=== PATIENT | female | born 1965 | race Caucasian/White ===

== ENCOUNTER → 2022-06-25 09:10 | Outpatient (BNVA) | payer BC, SELFPAY | PROVIDERS: PCP Nurse Practitioner Family; Visit Provider Student in an Organized Health Care Education/Training Program | DX: L93.0 Discoid lupus erythematosus (principal) ==

== ENCOUNTER → 2022-08-07 13:47 | Outpatient (BNVA) | payer BC, SELFPAY | PROVIDERS: PCP Nurse Practitioner Family; Visit Provider Student in an Organized Health Care Education/Training Program | DX: Z13.89 Encounter for screening for other disorder (principal) ==

== ENCOUNTER → 2022-12-04 13:02 | Outpatient (BNVA) | payer OTHER, SELFPAY | PROVIDERS: PCP Nurse Practitioner Family; Visit Provider Student in an Organized Health Care Education/Training Program ==

== ENCOUNTER 2023-09-20 14:06 | Outpatient (AMB) | payer OTHER, SELFPAY ==
--- NOTE | 2023-09-20 14:11 | MHC.OFFVIS ---
Intake Vital Signs 09/20/23 14:13 Height 5 ft 3.5 in Weight 121 lb 4.068 oz BMI 21.1 BP 128/66 Blood Pressure Location Rt brachial Position Sitting Pulse 58 Pulse Source Pulse Oximeter Pulse Oximetry (%) 98 Oxygen Delivery Method Room Air Intake Visit Reasons: Discoid Lupus Intake Note: Patient last seen 12/04/22 presents today for follow up. Spa Technician Required: No Accompanied by: Self / Same As Patient Allergies acetaminophen [From Percocet] Adverse Reaction (Intermediate, Verified 09/20/23 14:17) Hives oxycodone [From Percocet] Adverse Reaction (Intermediate, Verified 09/20/23 14:17) Hives Medication List - Last Reconciled 09/20/23 by Andrea Bardales MD amlodipine 10 mg PO DAILY clobetasol 0.05% 1 appl topical DAILY diclofenac sodium 1% 2 grams topical QID gabapentin 300 mg PO TID hydrochlorothiazide 25 mg PO DAILY hydroxychloroquine (Plaquenil) 200mg daily, on weekends 200mg bid orally 2 times a day; levocetirizine (Xyzal) 5 mg PO DAILY metoprolol succinate ER 50 mg PO DAILY HPI HPI Comments History of Present Illness Details 57-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 Doing well overall. She states that back in May she held her 2nd Plaquenil dose that she takes on the weekends. On advised from her accountant bookkeeper as a trial. She said soon after she started having diffuse itchy rashes on her face scalp and swelling of her right knee and foot., immediately she went back to taking the 2nd dose of hydroxychloroquine on weekends. She also had an episode of right knee swelling. She was evaluated by Orthopedics and received a Medrol pack with resolution. She states that she gets intermittent itching of her scalp. Currently she is having an lesion on her crown and mild generalized itching in the back of her scalp. She uses a clobetasol foam mixed with minoxidil. She has not had any other symptoms. Initial history: This is a 56-year-old female with a past medical history of discoid lupus who presents for evaluation. The condition started in the s when patient was under a lot of stress due to her mother's illness. She developed an itchy skin rash on her back. He was biopsied and the biopsy showed discoid lupus. Patient was on topical steroid creams and eventually the rashes resolved in 1-2 years. Four years ago, a few weeks after her 1st cervical spine surgery she had itchy skin rashes on her scalp, face and extremities. This was associated with hair loss. She was evaluated by a accountant bookkeeper and was initially diagnosed with psoriasis and was started on topical steroid treatment without relief she was then re-evaluated by another accountant bookkeeper Dr. Campbell and was diagnosed with discoid lupus. She had been on hydroxychloroquine 400 mg day for a few years then this dose was changed to 200 mg daily 5 days a week and 400 mg on the weekends. Her discoid lupus is better controlled now overall. Patient has been having fatigue and pain in her hands over the last 1-2 years. She was evaluated by a correctional sergeant and was deemed not to have systemic lupus only osteoarthritis. She is here for 2nd opinion. She continues to have pain in her left hand 2nd MCP, right hand 3rd MCP and bilateral thumbs. She has ongoing fatigue. Patient sleeps well but does not wake up refreshed. She denies any blood or frothy in the urine. No history of DVT/PE. No history suggestive of Raynaud's. [facility] Medical History (Updated 09/20/23 @ 14:35 by Andrea Bardales MD) Lumbar herniated disc Hypertension GERD (gastroesophageal reflux disease) Cutaneous lupus erythematosus Discoid lupus Arthritis Surgical History H/O spinal fusion delivery delivered History of knee replacement procedure of right knee History of knee replacement procedure of left knee H/O neck surgery Family History Father Colon cancer Mother Hyperlipemia COPD (chronic obstructive pulmonary disease) Myocardial infarct Rheumatoid arthritis Sister Rheumatoid arthritis Lung cancer Social History Household Members: Spouse Household Members Other:: Son Alcohol intake: current Alcohol intake frequency: a few times a week Current occupational status: employed Current occupation: blood donor unit assistant Review of Systems Musc Denies joint swelling Skin/Breast Reports pruritus and Reports rash Physical Exam Vital Signs: Last Vital Signs Pulse 58 09/20/23 14:13 BP 128/66 09/20/23 14:13 Pulse Ox 98 03/18/24 14:13 Oxygen Delivery Method Room Air 09/20/23 14:13 BMI result Body Mass Index 21.1 Const General: cooperative, healthy appearing, comfortable, no acute distress and well developed Nutritional Appearance: thin Orientation/consciousness: patient oriented x3 Limitations: no limitations HEENT Mouth: moist mucous membranes Resp Effort & Inspection: normal respiratory effort and able to speak in complete sentences Cardio Rate: regular rate Rhythm: regular rhythm Heart sounds: S1 normal heart sound present and S2 normal heart sound present GI Inspection: No distended Palpation (GI): Soft to palpation and nontender Skin Other: Small circular scaly raised lesion on her crown Neuro General: patient oriented x3 Extrem Other: Significant osteoarthritic changes of both hands with prominent Heberden's and Toshia's nodes No swollen or tender joints today Mild left 1st CMC tenderness Normal nailfold capillaroscopy Assessment & Plan Assessment & Plan (1) Discoid lupus: Code(s): L93.0 - Discoid lupus erythematosus Plan: This is a 56-year-old female with discoid lupus initially diagnosed in the s through skin biopsy of a lesion on her back, treated with topical steroid creams with resolution. Relapse in 2018 after cervical spine surgery with discoid lesions on scalp and extremities associated with hair loss now much better controlled on hydroxychloroquine. Labs show a persistently positive SSB and intermittently positive rheumatoid factor. Clinical picture rather consistent with UCTD. Continue hydroxychloroquine 200 mg 5 days a week and 400 mg 2 days a week. Briefly patient skipped her 2nd dose of hydroxychloroquine on the weekends and she developed a flare with itchy skin lesions and swollen joints that were controlled with prednisone. Labs before next visit in 6 months (2) Long-term use of hydroxychloroquine: Code(s): Z79.899 - Other chief cardiopulmonary technologist (current) drug therapy Plan: Patient is aware of risk of retinopathy associated with hydroxychloroquine. She stated that she was evaluated by deputy felony clerk and cleared to continue with hydroxychloroquine. Records not available to me. Advised patient to ask her deputy felony clerk's office to send me their records Plan I spent 25 minutes reviewing patient's chart, evaluating patient, ordering diagnostic workup, counseling patient and documenting in the chart Orders: Orders Comprehensive Met. Panel 6 Months M32.9 - Systemic lupus erythematosus, unspecified C Reactive Protein 6 Months M32.9 - Systemic lupus erythematosus, unspecified Complement C4 6 Months M32.9 - Systemic lupus erythematosus, unspecified UA w Microscopic 6 Months M32.9 - Systemic lupus erythematosus, unspecified Complete Blood Count Auto Diff 6 Months M32.9 - Systemic lupus erythematosus, unspecified Erythrocyte Sedimentation Rate 6 Months M32.9 - Systemic lupus erythematosus, unspecified Complement C3 6 Months M32.9 - Systemic lupus erythematosus, unspecified Protein Creatinine Ratio, Ur 6 Months M32.9 - Systemic lupus erythematosus, unspecified Anti DNA DS Antibody 6 Months M32.9 - Systemic lupus erythematosus, unspecified Coding Level of Care Code Est Pt Level 4 (80476) Diagnoses Discoid lupus L93.0 Long-term use of hydroxychloroquine Z79.899
[2023-09-20 14:13] VITALS: BP 128/66; PULSE 58; O2SAT 98; BMI 21.1
== END 2023-09-20 14:29 | disposition home or self-care (01) ==
PROVIDERS: PCP Nurse Practitioner Family; Referring Provider Nurse Practitioner Family; Visit Provider Student in an Organized Health Care Education/Training Program
DX: L93.0 Discoid lupus erythematosus (principal); Z79.899 Other long term (current) drug therapy
CPT/HCPCS: 99214

== ENCOUNTER → 2023-09-20 14:06 | Outpatient (BNVA) | payer OTHER, SELFPAY | PROVIDERS: PCP Nurse Practitioner Family; Visit Provider Student in an Organized Health Care Education/Training Program ==

== ENCOUNTER 2024-06-19 15:47 | Outpatient (AMB) | payer OTHER, SELFPAY ==
[2024-06-19 15:56] VITALS: BP 118/64; PULSE 57; O2SAT 97; BMI 20.8
--- NOTE | 2024-06-19 15:56 | MHC.OFFVIS ---
Vital Signs 06/19/24 15:56 Height 5 ft 3.5 in Weight 119 lb 4.321 oz BMI 20.8 BP 118/64 Blood Pressure Location Lt brachial Position Sitting Pulse 57 Pulse Source Pulse Oximeter Pulse Oximetry (%) 97 Oxygen Delivery Method Room Air Intake Visit Reasons: UCTD Intake Note: Patient last seen by Doctor Andrea Bardales on 09/20/23. Presents today for UCTD follow up and test results. Allergies acetaminophen [From Percocet] Adverse Reaction (Intermediate, Verified 06/19/24 16:00) Hives oxycodone [From Percocet] Adverse Reaction (Intermediate, Verified 06/19/24 16:00) Hives Medication List - Last Reconciled 06/19/24 by Andrea Bardales MD amlodipine 10 mg PO DAILY clobetasol 0.05% 1 appl topical DAILY diclofenac sodium 1% 2 grams topical QID gabapentin 300 mg PO TID hydrochlorothiazide 25 mg PO DAILY hydroxychloroquine (Plaquenil) 200mg daily, on weekends 200mg bid orally 2 times a day; levocetirizine (Xyzal) 5 mg PO DAILY metoprolol succinate ER 50 mg PO DAILY HPI Comments Details: 58-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 Back in March she developed an itchy rash on her back, it did not improve with prednisone, it eventually resolved with steroid cream. She has been doing well otherwise in terms of her skin. Last Wednesday she developed abrupt onset of left lower back pain that shoots down her left lower extremity, she felt that her foot was called. She will bring it up with her new PCP. Initial history: This is a 56-year-old female with a past medical history of discoid lupus who presents for evaluation. The condition started in the s when patient was under a lot of stress due to her mother's illness. She developed an itchy skin rash on her back. He was biopsied and the biopsy showed discoid lupus. Patient was on topical steroid creams and eventually the rashes resolved in 1-2 years. Four years ago, a few weeks after her 1st cervical spine surgery she had itchy skin rashes on her scalp, face and extremities. This was associated with hair loss. She was evaluated by a combat control and was initially diagnosed with psoriasis and was started on topical steroid treatment without relief she was then re-evaluated by another combat control Dr. Campbell and was diagnosed with discoid lupus. She had been on hydroxychloroquine 400 mg day for a few years then this dose was changed to 200 mg daily 5 days a week and 400 mg on the weekends. Her discoid lupus is better controlled now overall. Patient has been having fatigue and pain in her hands over the last 1-2 years. She was evaluated by a construction area manager and was deemed not to have systemic lupus only osteoarthritis. She is here for 2nd opinion. She continues to have pain in her left hand 2nd MCP, right hand 3rd MCP and bilateral thumbs. She has ongoing fatigue. Patient sleeps well but does not wake up refreshed. She denies any blood or frothy in the urine. No history of DVT/PE. No history suggestive of Raynaud's. [facility] Medical History Lumbar herniated disc Hypertension GERD (gastroesophageal reflux disease) Cutaneous lupus erythematosus Discoid lupus Arthritis Surgical History H/O spinal fusion delivery delivered History of knee replacement procedure of right knee History of knee replacement procedure of left knee H/O neck surgery Family History Father Colon cancer Mother Hyperlipemia COPD (chronic obstructive pulmonary disease) Myocardial infarct Rheumatoid arthritis Sister Rheumatoid arthritis Lung cancer Social History Household Members: Spouse Household Members Other:: Son Alcohol intake: current Alcohol intake frequency: a few times a week Current occupational status: employed Current occupation: kindergarten teacher assistant Female Reproductive History Menstrual Total pregnancies: 3 Number of Living Children: 3 Review of Systems Musc Reports back pain, Denies arthralgias, Denies joint swelling and Reports radiating pain into limb Skin/Breast Denies rash Physical Exam Vital Signs: Last Vital Signs Pulse 57 06/19/24 15:56 BP 118/64 06/19/24 15:56 Pulse Ox 97 06/19/24 15:56 Oxygen Delivery Method Room Air 06/19/24 15:56 BMI result Body Mass Index 20.8 Const General: cooperative, healthy appearing, comfortable, no acute distress and well developed Nutritional Appearance: thin Orientation/consciousness: patient oriented x3 Limitations: no limitations HEENT Mouth: moist mucous membranes Resp Effort & Inspection: normal respiratory effort and able to speak in complete sentences Cardio Rate: regular rate Rhythm: regular rhythm Heart sounds: S1 normal heart sound present and S2 normal heart sound present GI Inspection: No distended Palpation (GI): Soft to palpation and nontender Skin Other: Patient showed me pictures of her rash on her back now is back in March of 2024. Rash is not classic for a lupus rash Neuro General: patient oriented x3 Extrem Other: Significant osteoarthritic changes of both hands with prominent Heberden's and Toshia's nodes No swollen or tender joints today Normal nailfold capillaroscopy Assessment & Plan Assessment & Plan (1) Discoid lupus: Code(s): L93.0 - Discoid lupus erythematosus Category: Medical Plan: This is a 56-year-old female with discoid lupus initially diagnosed in the through skin biopsy of a lesion on her back, treated with topical steroid creams with resolution. Relapse in 2017 after cervical spine surgery with discoid lesions on scalp and extremities associated with hair loss now much better controlled on hydroxychloroquine. Labs show a persistently positive SSB and intermittently positive rheumatoid factor. Clinical picture rather consistent with UCTD. Continue hydroxychloroquine 200 mg 5 days a week and 400 mg 2 days a week. Briefly patient skipped her 2nd dose of hydroxychloroquine on the weekends and she developed a flare with itchy skin lesions and swollen joints that were controlled with prednisone. Back in March patient developed she rash on her back that resolved with steroid cream, patient showed me pictures, it was not clear for me that this was a lupus rash. I think overall patient does not need any additional DMARDs. She can continue with hydroxychloroquine at the current dose. She has been getting her refills from her combat control but she will no longer be seeing Dermatology. She can get the next refill from us [facility] before next visit in 6 months (2) Long-term use of hydroxychloroquine: Code(s): Z79.899 - Other long-term (current) drug therapy Category: Medical Plan: Patient is aware of risk of retinopathy associated with hydroxychloroquine. She stated that she was evaluated by Ophthalmology this year and cleared to continue hydroxychloroquine.. Records not available to me Plan I spent 25 minutes reviewing patient's chart, evaluating patient, ordering diagnostic workup, counseling patient and documenting in the chart Orders: Orders Comprehensive Met. Panel 6 Months M35.9 - Systemic involvement of connective tissue, unspecified, Z79.899 - Other termite control representative (current) drug therapy Anti DNA DS Antibody 6 Months M35.9 - Systemic involvement of connective tissue, unspecified, Z79.899 - Other long-term (current) drug therapy Complement C3 6 Months M35.9 - Systemic involvement of connective tissue, unspecified, Z79.899 - Other long-term (current) drug therapy Complement C4 6 Months M35.9 - Systemic involvement of connective tissue, unspecified, Z79.899 - Other termite control representative (current) drug therapy C Reactive Protein 6 Months M35.9 - Systemic involvement of connective tissue, unspecified, Z79.899 - Other long-term (current) drug therapy Erythrocyte Sedimentation Rate 6 Months M35.9 - Systemic involvement of connective tissue, unspecified, Z79.899 - Other long-term (current) drug therapy Protein Creatinine Ratio, Ur 6 Months M35.9 - Systemic involvement of connective tissue, unspecified, Z79.899 - Other termite control representative (current) drug therapy UA w Microscopic 6 Months M35.9 - Systemic involvement of connective tissue, unspecified, Z79.899 - Other termite control representative (current) drug therapy Complete Blood Count Auto Diff 6 Months M35.9 - Systemic involvement of connective tissue, unspecified, Z79.899 - Other long-term (current) drug therapy Coding Level of Care Code Est Pt Level 4 (69548) Diagnoses Discoid lupus L93.0 Long-term use of hydroxychloroquine Z79.899
== END 2024-06-19 16:21 | disposition home or self-care (01) ==
PROVIDERS: Visit Provider Student in an Organized Health Care Education/Training Program
DX: L93.0 Discoid lupus erythematosus (principal); Z79.899 Other long term (current) drug therapy
CPT/HCPCS: 99214

== ENCOUNTER 2025-01-11 07:32 | Outpatient (AMB) | payer OTHER, SELFPAY ==
--- OUTSIDE RECORDS SUMMARY | 2025-01-11 07:34 | XMS_ITS | Encounter Summary ---
Author Organization [facility], Address [address] [place] [address] Phone Care Team Providers Care Sand Miller Name Role Phone Jordyn Gongora NP Primary Care Provider Unavailabl e Reason for Visit * Reason Comments Med Refill Encounter Details Date Type Department Care Team (Late st Contact Info) Description 08/20/2024 Refill [facility], [address] [place] [address] Leander Barrientos MD [address] [place] [id number] Social History Tobacco Use Types Packs/Day Years Used Date Smoking Tobacco: Never Alcohol Use Standard Drinks/Week Comments No 0 (1 standard drink = 0.6 oz pure alcohol) Alcoholic Drinks/day: 1-2 drinks per day Comments Unknown Sex and Gender Information Value Date Recorded Sex Assigned at Not on file Legal Sex Female 4:35 PM EST Gender Identity Not on file Sexual Orientation Not on file documented as of this encounter Plan of Treatment Not on file documented as of this encounter Visit Diagnoses Not on filedocumented in this encounter Care Teams Sand Miller Relationship Specialty Start Date End Date Jordyn Gongora NP PCP - General 05/09/19 documented as of this encounter
--- NOTE | 2025-01-11 07:37 | MHC.OFFVIS ---
Vital Signs 01/11/25 07:40 Height 5 ft 3.5 in Weight 114 lb 3.191 oz BMI 19.9 BP 120/62 Blood Pressure Location Lt brachial Position Sitting Pulse 49 L Pulse Source Pulse Oximeter Pulse Oximetry (%) 97 Oxygen Delivery Method Room Air Intake Visit Reasons: UCTD Intake Note: Patient presents for UCTD follow up. Allergies acetaminophen (From Percocet) Adverse Reaction (Intermediate, Verified 01/11/25 07:40) Hives oxycodone (From Percocet) Adverse Reaction (Intermediate, Verified 01/11/25 07:40) Hives HPI Comments Details: Patient is a 59 y.o. 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 Bardales - doing well in terms of skin - complaining of back pain - No changes made to medications Today, - Doing well - No flares - Follows with derm - Saw ophthal this year Rheumatologic History: Dx - Discoid lupus, biopsy proven - Initially treated with topical steroids - Relapse in 2018 after C spine surgery - HCQ started in 2018 with improvement Initial history: This is a 56-year-old female with a past medical history of discoid lupus who presents for evaluation. The condition started in the when patient was under a lot of stress due to her mother's illness. She developed an itchy skin rash on her back. He was biopsied and the biopsy showed discoid lupus. Patient was on topical steroid creams and eventually the rashes resolved in 1-2 years. Four years ago, a few weeks after her 1st cervical spine surgery she had itchy skin rashes on her scalp, face and extremities. This was associated with hair loss. She was evaluated by a management architect and was initially diagnosed with psoriasis and was started on topical steroid treatment without relief she was then re-evaluated by another management architect Dr. Campbell and was diagnosed with discoid lupus. She had been on hydroxychloroquine 400 mg day for a few years then this dose was changed to 200 mg daily 5 days a week and 400 mg on the weekends. Her discoid lupus is better controlled now overall. Patient has been having fatigue and pain in her hands over the last 1-2 years. She was evaluated by a regional ehs manager and was deemed not to have systemic lupus only osteoarthritis. She is here for 2nd opinion. She continues to have pain in her left hand 2nd MCP, right hand 3rd MCP and bilateral thumbs. She has ongoing fatigue. Patient sleeps well but does not wake up refreshed. She denies any blood or frothy in the urine. No history of DVT/PE. No history suggestive of Raynaud's. Current Rheumatology Medication(s): Hydroxychloroquine 200mg bid (prescribed by derm) [facility] Medical History Lumbar herniated disc Hypertension GERD (gastroesophageal reflux disease) Cutaneous lupus erythematosus Discoid lupus Arthritis Surgical History H/O spinal fusion delivery delivered History of knee replacement procedure of right knee History of knee replacement procedure of left knee H/O neck surgery Family History Father Colon cancer Mother Hyperlipemia COPD (chronic obstructive pulmonary disease) Myocardial infarct Rheumatoid arthritis Sister Rheumatoid arthritis Lung cancer Social History Household Members: Spouse Household Members Other:: Son Alcohol intake: current Alcohol intake frequency: a few times a week Current occupational status: employed Current occupation: mental health assistant Review of Systems Const Details: Review of Systems Constitutional: Denies fever, chills, weight loss ENT: Denies vision changes, eye pain or eye redness, dental caries, dry mouth GI: Denies nausea, vomiting, diarrhea, abdominal pain, change in BM Pulm: Denies SOB, EISENBERG, hemoptysis, wheezing Cards: Denies chest pain, palpitations Skin: Denies Raynaud's, rash, nail changes, photosensitivity, LINOLEUM TILE FLOOR LAYER: Denies headaches, weakness, paresthesias, recurrent falls MSK: as per HPI All other systems reviewed and are unremarkable except noted above Physical Exam Vital Signs: Last Vital Signs Pulse 49 L 01/11/25 07:40 BP 120/62 01/11/25 07:40 Pulse Ox 97 01/11/25 07:40 Oxygen Delivery Method Room Air 01/11/25 07:40 BMI result Body Mass Index 19.9 Vital signs reviewed Physical Examination CONSTITUITIONAL Patient alert and cooperative. Well appearing and in no apparent painful distress HEENT Conjunctiva and sclera clear. No lymphadenopathy. CHEST/RESPIRATORY SYSTEM Normal respiratory effort and able to speak in complete sentences. Clear to auscultation bilaterally. No crackles, rales, rhonchi, wheezes heard. CARDIAC SYSTEM Regular rate and rhythm. S1 and S2 heard no murmurs. Radial pulses intact bilaterally MSK Hands Right Hand: Able to make a fist. No swelling or tenderness to palpation of these joints. Left Hand: Able to make a fist. No swelling or tenderness to palpation of these joints. Prominent herbedens and bouchards nodes noted bilaterally Wrists Right Wrist: Full ROM. 70 degrees of wrist flexion, 80 degrees of wrist extension. No swelling or TTP Left Wrist: Full ROM. 70 degrees of wrist flexion, 80 degrees of wrist extension. No swelling or TTP Elbows Right Elbow: Full ROM. No swelling or TTP. No TTP of the medial and lateral epicondyles Left Elbow: Full ROM. No swelling or TTP. No TTP of the medial and lateral epicondyles Shoulders Right shoulder: Full ROM. No swelling noted. No TTP of the AC joint, subacromial bursa or posterior shoulder Left shoulder: Full ROM. No swelling noted. No TTP of the AC joint, subacromial bursa or posterior shoulder Hip bursa: No tenderness to palpation bilaterally Knees Right knee: Full ROM. No swelling noted. No TTP of the knee joint lie or pes anserine bursa Left knee: Full ROM. No swelling noted. No TTP of the knee joint lie or pes anserine bursa. Crepitations felt bilaterally Ankles Right ankle: Good ankle dorsiflexion and plantar flexion. No swelling. No TTP of the ankle joint Left ankle: Good ankle dorsiflexion and plantar flexion. No swelling. No TTP of the ankle joint Feet Right foot: Negative squeeze test Left foot: Negative squeeze test Tender points? No tenderness to palpation of the bilateral trapezius, supraspinatus, anterior costochondral junctions, bilateral suboccipital muscle insertions SKIN Post inflammatory hyperpigmented rashes noted Results Reviewed Results Reviewed: Labs from [facility] 05/04/24 05/04/24 WBC 5.2 Hb 13.4 Plt 317 BUN 7 Cr 0.67 eGFR 100 C3 123 C4 42 dsDNA 1 ESR 8 CRP 3 Assessment & Plan Assessment & Plan (1) Discoid lupus: Code(s): L93.0 - Discoid lupus erythematosus Category: Medical Plan: #Discoid Lupus Patient is a 59 y.o. female with discoid lupus here today for follow up Doing well on plaquenil No relapses Plan - Continue plaquenil (prescribed by derm) - Follow up labs done at [facility] last wednesday - RTC 6 months - Labs before visit: CBC, CMP, ESR, CRP, C3, C4, dsDNA, UA, UPC (2) Long-term use of hydroxychloroquine: Code(s): Z79.899 - Other long term care administrator (current) drug therapy Category: Medical Plan: #Long-term Use of Hydroxychloroquine Discussed with patient the risks and benefits of hydroxychloroquine in managing the rheumatic condition Benefits include: - Reduced pain, reduce mortality, maintenance of remission and reduction of flares Risks include: - GI upset, skin hyperpigmentation, retinal toxicity (especially after more than 5 years of use), myopathy Advised yearly ophthalmology visits Last ophthalmology visit: 2024 Plan I spent 25 minutes reviewing the record and labs, taking a history, examining the patient, discussing the treatment plan, ordering diagnostic work up and documenting in the medical record Coding Level of Care Code Est Pt Level 3 (39036) Complex EM visit Add On G2211 Diagnoses Discoid lupus L93.0 Long-term use of hydroxychloroquine Z79.899
[2025-01-11 07:40] VITALS: BP 120/62; PULSE 49; O2SAT 97; BMI 19.9
== END 2025-01-11 08:05 | disposition home or self-care (01) ==
LOC: HO.RHE 07:33
PROVIDERS: PCP Nurse Practitioner Family; Visit Provider Student in an Organized Health Care Education/Training Program
DX: L93.0 Discoid lupus erythematosus (principal); Z79.899 Other long term (current) drug therapy
CPT/HCPCS: 99213